=== PATIENT | male | born 1985 | race Caucasian/White ===

== ENCOUNTER 2018-12-08 14:20 | Emergency (ER) | payer SELFPAY ==
[2018-12-08] MEDS ORDERED: NS 0.9% 1000 ML** 1,000 ML IV ONE (14:55)
--- NOTE | 2018-12-08 14:56 | ED ---
Complex/Multi-Sys Presentation - HPI Summary HPI Summary: This patient is a 32 year old M presenting to [facility] accompanied by with a chief complaint of intermittent frontal headaches since 12/07/18. Prior to that pt had resolved lower back pain radiating to R shoulder since 3 days ago. The patient rates the pain 8/10 in severity. Symptoms alleviated by tylenol. Pt last took Tylenol at 0800 this morning. Patient reports nausea, vomiting, dizziness, sore throat (after vomiting yellow bile), fever, photophobia, nml urination, nml BM. Patient denies coughing, and congestion. Pt has a PMHx of kidney stones. - History Of Current Complaint Chief Complaint: EDGeneral Time Seen by Provider: 12/08/18 14:41 Hx Obtained From: Patient Onset/Duration: Gradual Onset, Still Present Timing: Constant, Intermittent, Lasting: - HARRELL Severity Currently: Severe Severity Initially: Moderate Location: Pain At: - HARRELL, neck, back Character: Typical Headache Aggravating Factor(s): nothing Alleviating Factor(s): tylenol Associated Signs And Symptoms: Positive: Nausea, Vomiting, Back Pain, Fever, Other - HARRELL, neck pain, dizziness, sore throat, photophobia. Negative: Cough - Allergies/Home Medications Allergies/Adverse Reactions: Allergies Allergy/AdvReac Type Severity Reaction Status Date / Time No Known Allergies Allergy Verified 12/08/18 14:25 Home Medications: Home Medications Acetaminophen [Acetaminophen Extra Strength] 1,000 mg PO Q4HR PRN 12/08/18 [ History Confirmed 12/08/18] PMH/Surg Hx/FS Hx/Imm Hx Endocrine/Hematology History: Denies: Hx Diabetes, Hx Thyroid Disease Cardiovascular History: Reports: Hx Hypertension Respiratory History: Denies: Hx Asthma, Hx Chronic Obstructive Pulmonary Disease (COPD) GI History: Denies: Hx Ulcer Infectious Disease History: No Infectious Disease History: Denies: Hx Hepatitis, Hx Human Immunodeficiency Virus (HIV), Traveled Outside the [place] in Last 30 Days - Family History Known Family History: Positive: None Negative: Diabetes - Social History Lives: With Family Alcohol Use: None Substance Use Type: Reports: None Smoking Status (MU): Current Every Day Smoker Type: Smokeless Tobacco Review of Systems Positive: Fever Positive: Photophobia Positive: Sore Throat. Negative: Nasal Discharge Negative: Cough Positive: Vomiting, Nausea Positive: no symptoms reported Positive: Other - neck and back pain Neurological: Other - pos - dizziness Positive: Headache All Other Systems Reviewed And Are Negative: Yes Physical Exam - Summary Physical Exam Summary: Appearance: The patient is well-nourished in no acute distress and in no acute pain. No meningeal signs, cheeks flushed Skin: The skin is warm and dry, and skin color reflects adequate perfusion. HEENT: The head is normocephalic and atraumatic. The pupils are equal and reactive. The conjunctivae are clear and without drainage. Nares are patent and without drainage. Mouth reveals moist mucous membranes, and the throat is without erythema and exudate. The external ears are intact. The ear canals are patent and without drainage. The tympanic membranes are intact. Neck: The neck is supple with full range of motion and non-tender. There are no carotid bruits. There is no neck vein distension. Respiratory: Chest is non-tender. Lungs are clear to auscultation and breath sounds are symmetrical and equal. Cardiovascular: There is no murmur or rub auscultated. There is no peripheral edema and pulses are symmetrical and equal. Tachycardic Abdomen: The abdomen is soft and non-tender. There are normal bowel sounds heard in all four quadrants and there is no organomegaly palpated. Musculoskeletal: There is no back tenderness noted. Extremities are non-tender with full range of motion. There is good capillary refill. There is no peripheral edema or calf tenderness elicited. Neurological: Patient is alert and oriented to person, place and time. The patient has symmetrical motor strength in all four extremities. Cranial nerves are grossly intact. Deep tendon reflexes are symmetrical and equal in all four extremities. Psychiatric: The patient has an appropriate affect and does not exhibit any anxiety or depression. Triage Information Reviewed: Yes Vital Signs On Initial Exam: Initial Vitals Temp Pulse Resp BP Pulse Ox 101.6 F 103 18 163/100 99 12/08/18 14:22 12/08/18 14:22 12/08/18 14:22 12/08/18 14:22 12/08/18 14:22 Vital Signs Reviewed: Yes Diagnostics - Vital Signs Vital Signs Temp Pulse Resp BP Pulse Ox 12/08/18 14:22 101.6 F 103 18 163/100 99 - Laboratory Result Diagrams: 12/08/18 15:14 12/08/18 15:14 Lab Statement: Any lab studies that have been ordered have been reviewed, and results considered in the medical decision making process. - Radiology CXR Radiology Interpretation Completed By: Radiologist Summary of Radiographic Findings: CXR reveals, per radiologist, IMPRESSION: NO ACTIVE CARDIOPULMONARY DISEASE IS NOTED. ED physician has reviewed this radiology report. - CT Abdomen/Pelvis CT CT Interpretation Completed By: Radiologist Summary of CT Findings: Abdomen/Pelvis CT reveals, per radiologist, IMPRESSION: No evidence of obstructive uropathy is noted. Normal appendix. No other masses or fluid collections are identified. ED physician has reviewed this radiology report. Re-Evaluation - Re-Evaluation First Eval Re-Evaluation Time: 17:53 Comment: Looks completely improved, no HARRELL, HR is still tachycardic. Second Eval Re-Evaluation Time: 18:37 Comment: Discussed plan of care with pt. Third Eval Re-Evaluation Time: 19:11 Comment: Pt would like to leave b/c they do not have insurance. Complex Multi-Symp Course/Dx Course Of Treatment: Mr. Calderon presented complaining of having had right flank pain a few days ago which has resolved. He also has had intermittent headaches and fevers along with sore throat and general malaise. He was nontoxic in appearance and very mildly tachycardic on arrival with a fever of 101.6. He had had Tylenol a couple hours prior to presentation. IV was initiated was given IV fluids while the workup was in progress. His white count did return at 13 and at that point he was no longer tachycardic. On exam there were no focal signs and clearly had no meningeal signs. After Tylenol and fluids he was completely improved. He had no complaints whatsoever and said he felt great. Unfortunately he however to around 100 with his heart rate and his blood pressure was very variable but oftentimes in the 90s. He stated that he used to be on lisinopril but can no longer afford. Because of this soft blood pressure and borderline tachycardia I consult with the hospitalists. However the patient refused to stay in the hospital. He is the sole breadwinner and they have no health insurance. He was feeling completely improved and never looked toxic here in the department. I recommended they stay but respect the fact that this would be of very difficult financial burden for them and he clearly does not look toxic. This is likely viral but I cannot rule out something more dangerous. They opted to leave against my advice. - Diagnoses Provider Diagnoses: Febrile illness, acute - Physician Notifications Discussed Care Of Patient With: Irvin Thurman Time Discussed With Above Provider: 18:41 Instructed by Provider To: Other - Discussed case with Dr. Thurman, who consult. Discharge ED - Sign-Out/Discharge Documenting (check all that apply): Patient Departure - Discharge Patient Received Moderate/Deep Sedation with Procedure: No - Discharge Plan Condition: Stable Disposition: AGAINST MEDICAL ADVICE Patient Education Materials: Fever in Adults (ED) Referrals: [facility] [Outside] Additional Instructions: FOLLOW UP WITH PCP WITHIN 2-3 DAY. RETURN TO ED FOR ANY NEW OR WORSENING SYMPTOMS. - Billing Disposition and Condition Condition: STABLE Disposition: Against Medical Advice - Attestation Statements Document Initiated by Walter: Yes Documenting Scribe: Erica Ulrich Provider For Whom Walter is Documenting (Include Credential): Dr. William Montemayor MD Scribe Attestation: Erica Michelle scribed for Dr. William Montemayor MD on 12/09/18 at 0731. Scribe Documentation Reviewed: Yes Provider Attestation: The documentation as recorded by the Erica fabian accurately reflects the service I personally performed and the decisions made by me, Dr. William Montemayor MD Status of Scribe Document: Viewed
[2018-12-08 15:20] LABS: Urine Appearance Clear; Urine Bacteria Absent (Absent); Urine Bilirubin Negative (Negative); Urine Blood 1+ (Negative); Urine Color Yellow; Urine Glucose Negative (Negative); Urine Ketones Negative (Negative); Urine Nitrite Negative (Negative); Urine Protein Negative (Negative); Urine Red Blood Cell 1+(3-5/hpf) (Absent); Urine Specific Gravity 1.023 (1.010-1.030); Urine Squamous Epithelial Cell Present (Absent); Urine Urobilinogen Negative (Negative); Urine White Blood Cell Trace(0-5/hpf) (Absent)
[2018-12-08 15:23] LABS: ABS Basophils 0.1 10^3/ul (0-0.2); ABS Lymphocytes 1.3 10^3/ul (1.0-4.8); ABS Monocytes 1.4 10^3/ul (0-0.8); ABS Neutrophils 10.3 10^3/ul (1.5-7.7); Hematocrit 42 % (42-52); Mean Corpuscular HGB Conc 34 g/dL (31-36); Mean Corpuscular Hemoglobin 30 pg (27-31); Mean Corpuscular Volume 88 fL (80-94); Mean Platelet Volume 7.8 fL (7.4-10.4); Platelet Count 290 10^3/uL (150-450); Red Blood Count 4.75 10^6 /uL (4.18-5.48); Red Cell Distribution Width 15 % (10-15)
[2018-12-08 15:40] LABS: Albumin/Globulin Ratio 1.1 (1-3); BUN/Creatinine Ratio 10.5 (8-20); C Reactive Protein 98.13 mg/L (<8.01); Calcium 9.2 mg/dL (8.6-10.3); EGFR African American 89.5 (>60); Globulin 3.6 g/dL (2-4); Potassium 4.1 mmol/L (3.5-5.0); Total Bilirubin 0.4 mg/dL (0.2-1.0); Total Protein 7.6 g/dL (6.4-8.9)
[2018-12-08] MEDS ORDERED: Acetaminophen TAB* 325 MG PO ONE (16:35)
[2018-12-08] MEDS ORDERED: NS 0.9% 1000 ML** 2,000 ML IV ONE (17:11)
[2018-12-08] MEDS: NS 0.9% 1000 ML** 1,000 ML IV ONE ×2 (17:11→17:31)
[2018-12-08] MEDS ORDERED: Ciprofloxacin 400MG IVPREMIX(* 400 MG/200 ML BAG IVPB ONE (17:11)
[2018-12-08 20:29] VITALS: BP 145/79
== END 2018-12-08 19:43 | disposition left against medical advice (07) ==
LOC: ED 14:20
DX: R50.84 Febrile nonhemolytic transfusion reaction (principal); R50.9 Fever, unspecified; J02.9 Acute pharyngitis, unspecified; R51 Headache; F17.210 Nicotine dependence, cigarettes, uncomplicated; M54.9 Dorsalgia, unspecified
CPT/HCPCS: 36415; 71045; 74176; 80053; 81003; 81015; 83605; 84484; 85025; 86140; 87040; 87086; 96361; 96365; 96366; 99284; A9270-GY; J0744

== ENCOUNTER 2022-08-27 12:51 | Inpatient (IN) ==
[2022-08-27] MEDS ORDERED: Lactated Ringers 1000 ml BAG 1,000 ML IV ONE (13:51)
[2022-08-27] MEDS ORDERED: Ondansetron 4 mg VIAL 2 MG/ML 2 ml VIAL IV ONE (13:51)
[2022-08-27 14:19] LABS: ABS Basophils 0.1 10^3/uL (0.0-0.1); ABS Eosinophils 0.1 10^3/uL (0.0-0.5); ABS Lymphocytes 1.2 10^3/uL (1.0-4.8); ABS Monocytes 0.5 10^3/uL (0.0-1.1); ABS Neutrophils 12.3 10^3/uL (1.5-7.6); ABS Nucleated RBC 0.02 10^3/ul; Eosinophil % 0.5 %; Hematocrit 41.7 % (38-53); Hemoglobin 14.1 g/dL (13.2-16.3); Lymphocyte % 8.7 %; Mean Corpuscular Hemoglobin 29.2 pg (27-33); Mean Corpuscular Hgb Conc 33.7 g/dL (31-36); Mean Corpuscular Volume 86.5 fL (80-97); Mean Platelet Volume 8.7 fL (7.5-11.2); Nucleated Red Blood Cells % 0.1 /100 WBC (0.0-0.4); Platelet Count 361 10^3/uL (150-450); Red Blood Count 4.82 10^6/uL (4.06-5.63); Red Cell Distribution Width 14.4 % (12-17); White Blood Count 14.2 10^3/uL (3.6-10.2)
[2022-08-27 15:19] LABS: Albumin 4.3 g/dL (3.2-5.2); Albumin/Globulin Ratio 1.4 (1-3); C Reactive Protein 8.14 mg/L (<8.01); Calcium 9.5 mg/dL (8.6-10.3); Creatinine, Serum 1.1 mg/dL (0.67-1.17); Globulin 3.1 g/dL (2-4); Potassium 4.8 mmol/L (3.5-5.0); Total Bilirubin 0.4 mg/dL (0.2-1.0); Total Protein 7.4 g/dL (6.4-8.9); eGFR CKD-EPI 88.7 (>60)
[2022-08-27] MEDS ORDERED: HYDROmorphone 1 MG/1 ML SYRINGE IV SLOW PU PRN (15:32)
[2022-08-27] MEDS ORDERED: Piperacillin/Tazobac ADVAN 3.375 GM in NS 0.9% 100 ml BAG 100 ML IV ONE (15:32)
[2022-08-27] MEDS ORDERED: oxyCODONE/Acetamin 5/325 mg TAB PO PRN (15:32)
[2022-08-27] MEDS ORDERED: Ondansetron 4 mg VIAL 2 MG/ML 2 ml VIAL IV PRN (15:32)
[2022-08-27] MEDS ORDERED: hydrALAZINE 20 mg/ml 1 ML Vial IV IV SLOW PU PRN (15:47)
[2022-08-27] MEDS: NS 0.9% 1000 ml BAG 1,000 ML IV SCH (16:33)
[2022-08-28] MEDS: NS 0.9% 1000 ml BAG 1,000 ML IV SCH (00:10)
[2022-08-28] MEDS ORDERED: Bupivacaine 0.5% SDV PF 30ML VIAL ONE (09:07)
[2022-08-28] MEDS ORDERED: Acetaminophen IV 1 GM/100ML 1,000 MG/100 ML BAG IV ONE (09:17)
[2022-08-28] MEDS ORDERED: Piperacillin/Tazobac ADVAN 3.375 GM in NS 0.9% 100 ml BAG 100 ML IV ONE (09:18)
[2022-08-28] MEDS ORDERED: Rocuronium 50 mg VIAL 10 mg/ml 5 ml VIAL (50 mg) ONE (09:20)
[2022-08-28] MEDS ORDERED: Lidocaine 2% PF 5 ML VIAL ONE (09:20)
[2022-08-28] MEDS ORDERED: Propofol 10 MG/ML 20 ML BTL ONE (09:20)
[2022-08-28] MEDS ORDERED: Piperacillin/Tazobac 3.375 GM ADVAN ONE (09:20)
[2022-08-28] MEDS ORDERED: Midazolam 2 mg/2 ml VIAL 1 mg/ml 2 ml VIAL (2 mg) ONE (09:20)
[2022-08-28] MEDS ORDERED: Dexamethasone IV 4 MG/ML VIAL 1 ml VIAL ONE (09:20)
[2022-08-28] MEDS ORDERED: Ondansetron 4 mg VIAL 2 MG/ML 2 ml VIAL ONE (09:20)
[2022-08-28] MEDS ORDERED: fentaNYL 250 mcg/5 ml 50 MCG/ML 5 ml VIAL (250 MCG) ONE (09:20)
[2022-08-28] MEDS ORDERED: fentaNYL 100 mcg/2 ml 50 MCG/ML VIAL IV PRN (10:01)
[2022-08-28] MEDS ORDERED: Naloxone 0.4 mg VIAL 0.4 mg/ml 1 ml VIAL IV PRN (10:01)
[2022-08-28] MEDS ORDERED: Sugammadex 500 MG/5 ML 5 ml VIAL IV PUSH ONE (10:31)
[2022-08-28 14:28] VITALS: BP 130/75
== END 2022-08-28 13:00 | disposition home or self-care (01) | DRG 263 ==
LOC: ED 12:51 → EDHOLD 15:36 → AA 08-28 08:40 → SSU 09-08 20:14 → AA 09-08 21:02
PROVIDERS: ADMIT Surgery; ATTEND Surgery